=== PATIENT | female | born 1975 | race Caucasian/White ===

== ENCOUNTER → 2020-10-28 14:03 | Outpatient (CLI) | payer OTHER, SELFPAY ==
--- NOTE | ~2020-10-28 | MM_ITS ---
EXAMINATION: MM screening ana BI w elian HISTORY: Screening TECHNIQUE: Craniocaudal and mediolateral oblique 3-D tomosynthesis images were obtained and synthetic 2-D images were generated. CAD analysis was submitted and interpreted. COMPARISON: Comparison to multiple prior studies sequentially, with oldest reviewed study dated 06/06. BREAST PARENCHYMAL COMPOSITION: There are scattered areas of fibroglandular density. FINDINGS: There is no evidence of suspicious mass, calcification, or architectural distortion to sugg est malignancy in either breast. There has been no suspicious interval change. IMPRESSION: 1. No mammographic evidence of malignancy. 2. Recommend routine screening mammography in one year. BI-RADS Category 1: Negative Reviewed, dictated and finalized at location A. UNTING MACHINE OPERATOR
== END ==
PROVIDERS: Visit Provider Nurse Practitioner
DX: Z12.31 Encounter for screening mammogram for malignant neoplasm of breast (principal)
CPT/HCPCS: 77063; 77067

== ENCOUNTER → 2021-10-31 15:55 | Outpatient (CLI) | payer OTHER, SELFPAY ==
--- NOTE | ~2021-10-31 | MM_ITS ---
EXAMINATION: MM screening ana BI w elian HISTORY: Screening mammogram TECHNIQUE: Craniocaudal and mediolateral oblique 3-D tomosynthesis images were obtained and synthetic 2-D images were generated. CAD analysis was submitted and interpreted. COMPARISON: October 28, 2020, August 29, 2019 bilateral screening mammogram examinations BREAST PARENCHYMAL COMPOSITION: There are scattered areas of fibroglandular density. FINDINGS: There is no evidence of suspicious mass, calcification, or architectural distortion to sugg est malignancy in either breast. There has been no suspicious interval change. IMPRESSION: 1. No mammographic evidence of malignancy. 2. Recommend routine screening mammography in one year. BI-RADS Category 1: Negative Reviewed, dictated and finalized at location A. SORTER
== END ==
PROVIDERS: Visit Provider Nurse Practitioner
DX: Z12.31 Encounter for screening mammogram for malignant neoplasm of breast (principal)
CPT/HCPCS: 77063; 77067

== ENCOUNTER → 2022-12-03 11:09 | Outpatient (CLI) | payer OTHER, SELFPAY ==
--- NOTE | ~2022-12-03 | US_ITS ---
EXAMINATION: US thyroid DATE: 12/03/2022 11:25 INDICATION: Post procedural hypothyroidism. TECHNIQUE: Multiple ultrasound images of the thyroid were obtained. COMPARISON: Ultrasound 11/03/2018 FINDINGS: The thyroid is absent. There is no abnormal tissue in the thyroidectomy bed. IMPRESSION: 1. Thyroidectomy. Reviewed, dictated and finalized at location A. IMPRESSION: 1. Thyroidectomy.
== END ==
PROVIDERS: PCP Internal Medicine Endocrinology, Diabetes & Metabolism; Visit Provider Internal Medicine Endocrinology, Diabetes & Metabolism
DX: E89.0 Postprocedural hypothyroidism (principal)
CPT/HCPCS: 76536

== ENCOUNTER 2023-02-01 16:00 | Emergency (ER) | payer OTHER, SELFPAY ==
[2023-02-01 16:03] VITALS: BP 168/125; PULSE 69; RESP 16; TEMP 36.2; O2SAT 100
--- NOTE | 2023-02-01 16:35 | ED.DIZZY ---
HPI - Dizziness General Chief Complaint: Dizziness Stated Complaint: DIZZY/NAUSEA Time Seen by Provider: 02/01/23 16:25 Source: patient Mode of arrival: ambulatory Limitations: no limitations History of Present Illness HPI Narrative: Patient is a 47-year-old female who presents with dizziness and nausea. Patient states she had similar symptoms on Saturday along with diarrhea that resolved in the afternoon. Patient states dizziness feels like she is going to pass out, denies room spinning. States when she has dizziness episodes she is not having any chest pain or feeling like her heart is pounding. Patient denies any ear pain, sore throat, cough. Does report mild congestion that is similar to her seasonal allergies but has not taken any allergy medicine. Also reports headache today that feels as if it is pounding. Patient is currently hypertensive but denies taking her blood pressure at home. Related Data Home Medications Medication Instructions Recorded Confirmed multivitamin 1 tablet PO QAM 04/27/20 02/01/23 hydrocortisone 2.5 % topical cream 1 applic topical DAILY 02/01/23 02/01/23 Allergies Allergy/AdvReac Type Severity Reaction Status Date / Time levofloxacin Allergy Unknown Hives Verified 02/01/23 16:16 Review of Systems Review of Systems: All systems reviewed & are unremarkable except as noted in HPI and below Constitutional: Constitutional: Denies body ache(s), Denies chills, Denies fatigue, Denies fever(s), Reports headache(s), Denies malaise and Denies weakness Eyes: Eyes: Denies blurry vision, Denies irritation and Denies loss of vision ENT: Denies otalgia, Reports headache(s), Denies nasal discharge, Denies sinus pain and Denies sore throat Cardiovascular: Cardiovascular: Denies chest pain, Denies irregular heart rhythm and Denies dyspnea Respiratory: Respiratory: Denies dyspnea Gastrointestinal: Gastrointestinal: Denies abdominal pain, Denies melena, Denies hematochezia, Denies diarrhea, Denies nausea and Denies vomiting Musculoskeletal: Musculoskeletal: Denies back pain, Denies myalgias and Denies arthralgias Integumentary/Breasts: Skin/Breast: Denies pruritus and Denies rash Neurologic: Reports dizziness, Reports headache(s), Denies loss of vision and Denies weakness Psychiatric: Psychiatric: Reports no additional psychiatric complaints Endocrine: Endocrine: Denies fatigue PMFSH Past Medical History Medical History (Updated 02/01/23 @ 18:22 by Freida Emery, SURAJ) Heart palpitations Vitamin D deficiency Surgical History Surgical History H/O thyroidectomy 01/2018 Family History Family History Mother Family history of thyroid disease Family history of pancreatic cancer Family history of coronary artery disease Family history of malignant neoplasm of thyroid Hypertension Father Acute myocardial infarction Hypertension Hyperlipidemia Other Family history of cardiovascular disease Family history of glaucoma Family history of hearing loss Social History Social History Smoking status: Former smoker Smoking end date: 09/09/99 Alcohol intake: current Comments At time of signature, agree with nursing past medical, surgical, social and family history. There is no relevant family history pertinent to the presenting complaint. Exam Const: General: cooperative, healthy appearing, comfortable, no acute distress and well nourished Nutritional Appearance: well nourished Orientation/consciousness: patient oriented x3 Limitations: no limitations HENMT: Head: normal to inspection, normocephalic and atraumatic Ears: hearing grossly normal bilaterally and external ears normal Face/Nose/Sinus: Normal external nose present, normal facial exam and face symmetric Face and sinus: normal facial exam and face symmetric
--- NOTE | 2023-02-01 16:38 | ECG_ITS ---
Measurements Intervals Odin Rate: 54 P: 63 IN: 161 QRS: 69 QRSD: 106 T: 72 QT: 422 QTc: 402 Interpretive Statements SINUS BRADYCARDIA INCOMPLETE RIGHT BUNDLE BRANCH BLOCK BASELINE ARTIFACT- I, AVR, AVL BORDERLINE ECG COMPARED TO ECG 02/01/2023 16:49:22 NO SIGNIFICANT CHANGES Electronically Signed On 02-02-2023 8:12:06 CDT by Cristopher Hutson D.O.
[2023-02-01 17:20] VITALS: BP 155/113; PULSE 66
== END 2023-02-01 17:40 | disposition short-term general hospital (02) ==
PROVIDERS: Emergency Provider Nurse Practitioner Family; PCP Internal Medicine
DX: R42 Dizziness and giddiness (principal); R51.9 Headache, unspecified; I10 Essential (primary) hypertension; Z20.822 Contact with and (suspected) exposure to COVID-19; I45.10 Unspecified right bundle-branch block; Z87.891 Personal history of nicotine dependence; E89.0 Postprocedural hypothyroidism
CPT/HCPCS: 87426; 87804; 93005; 99213; C9803; G0463

== ENCOUNTER 2023-02-01 17:58 | Emergency (ER) | payer OTHER, SELFPAY ==
[2023-02-01] VITALS (18 sets, daily range): BP systolic 132–167; BP diastolic 93–114; PULSE 60–73; RESP 11–22; TEMP 36.6; O2SAT 100
--- NOTE | 2023-02-01 18:16 | ECG_ITS ---
Measurements Intervals Moro Rate: 59 P: 56 MO: 162 QRS: 64 QRSD: 100 T: 61 QT: 415 QTc: 412 Interpretive Statements SINUS BRADYCARDIA WITH SINUS ARRHYTHMIA INCOMPLETE RIGHT BUNDLE BRANCH BLOCK BASELINE WANDER- II, III BORDERLINE ECG NO PREVIOUS ECG AVAILABLE FOR COMPARISON Electronically Signed On 02-02-2023 8:09:20 CDT by Cristopher Hutson D.O.
[2023-02-01 18:33] LABS: Basophils Absolute Auto 0.1 K/mm3 (0.0-0.1); Basophils Percent Auto 0.6 % (0.2-1.2); Eosinophils Absolute Auto 0.1 K/mm3 (0-0.3); Eosinophils Percent Auto 0.8 % (0-4.4); Hematocrit 43.9 % (37.0-47.0); Immature Granulocyte Absolute 0.03 K/mm3 (0.00-0.031); Immature Granulocyte Percent A 0.3 % (0-0.5); Lymphocytes Absolute Auto 2.01 K/mm3 (0.9-3.2); Lymphocytes Percent Auto 22.4 % (18.3-44.2); Mean Corpuscular HGB Conc 34.2 g/dl (32-36); Mean Corpuscular Hemoglobin 32.5 pg (26-34); Mean Platelet Volume 10.3 fl (7.4-10.4); Monocytes Absolute Auto 0.5 K/mm3 (0.1-0.6); Monocytes Percent Auto 5.8 % (2.6-8.5); Neutrophils Absolute Auto 6.3 K/mm3 (1.3-6.7); Neutrophils Percent Auto 70.1 % (45.5-73.1); Platelet Count Result 210 k/mm3 (150-375); Red Blood Count 4.62 M/mm3 (4.2-5.4); Red Cell Distribution Width 12.5 % (11.5-14.5)
[2023-02-01 19:10] LABS: Alanine Aminotransferase 31 U/L (6-35); Albumin Level 4.5 g/dL (3.5-5.1); Alkaline Phosphatase 65 U/L (38-126); Anion Gap 3 mmol/L (8-16); Aspartate Amino Transferase 33 U/L (14-36); Bilirubin,Total 0.7 mg/dL (0.2-1.3); Blood Urea Nitrogen 16 mg/dL (7-17); Calcium 8.7 mg/dL (8.4-10.2); Carbon Dioxide 32 mmol/L (22-30); Chloride 102 mmol/L (98-107); Estimated CRCL calculation 115 ml/min; Estimated Glomerular Filt Rate > 60; Glucose 103 mg/dL (65-110); Potassium 4.3 mmol/L (3.4-5.0); Sodium 137 mmol/L (137-145)
--- NOTE | 2023-02-01 19:47 | ED.DIZZY ---
HPI - Dizziness General Chief Complaint: Dizziness Stated Complaint: dizzy, headache, nausea, high BP Time Seen by Provider: 02/01/23 19:03 History of Present Illness HPI Narrative: This is a 47-year-old female with past history of thyroidectomy for thyroid nodule, who presents to the emergency department from urgent care with complaints of intermittent headaches and lightheadedness. The patient states 5 days ago, she had a throbbing-like headache, associated with loose stools, that improved on its own. Today she had similar symptoms, presented to the urgent care and was told she had high blood pressure was referred here for further evaluation. At present the patient states she feels the best I ever have. She denies recent travel, abnormal rash, known insect bites or exposure to hazardous chemicals. Related Data Home Medications Medication Instructions Recorded Confirmed multivitamin 1 tablet PO QAM 04/27/20 02/01/23 hydrocortisone 2.5 % topical cream 1 applic topical DAILY 02/01/23 02/01/23 Allergies Allergy/AdvReac Type Severity Reaction Status Date / Time levofloxacin Allergy Unknown Hives Verified 02/01/23 16:16 Review of Systems Review of Systems: CONSTITUTIONAL: Denies fever, chills, or sweats. EYES: Denies visual changes, redness, or discharge. CARDIOVASCULAR: Denies chest pain, palpitations, or edema. RESPIRATORY: Denies cough or dyspnea. GASTROINTESTINAL: Denies abdominal pain, nausea, vomiting, or diarrhea. GENITOURINARY: Denies dysuria or hematuria. SKIN: Denies rash or itching. MUSCULOSKELETAL: Denies back pain, joint pain, or myalgia. NEUROLOGIC: Headache and intermittent lightheadedness, both improved denies numbness, dizziness, or weakness. PSYCHIATRIC: Denies anxiety or depression. [facility] Past Medical History Medical History (Updated 02/01/23 @ 21:29 by Thompson Senior MD) Heart palpitations Vitamin D deficiency Surgical History Surgical History H/O thyroidectomy 01/2018 Family History Family History Mother Family history of thyroid disease Family history of pancreatic cancer Family history of coronary artery disease Family history of malignant neoplasm of thyroid Hypertension Father Acute myocardial infarction Hypertension Hyperlipidemia Other Family history of cardiovascular disease Family history of glaucoma Family history of hearing loss Social History Social History Smoking status: Former smoker Smoking end date: 09/09/99 Alcohol intake: current Exam Narrative: GENERAL: Well-developed, well-nourished, and in no acute distress. HEAD: Normocephalic, atraumatic. EYES: PERRLA and EOMI. funduscopic exam unremarkable ENT: Nares clear, no rhinorrhea or epistaxis. Mucous membranes moist. Oropharynx without tonsillar hypertrophy exudate or other lesions. NECK: Supple. No adenopathy or masses. No carotid bruits or JVD CHEST: Clear to auscultation. No respiratory distress. No wheezes rales or rhonchi HEART: Regular rate and rhythm. No murmur heard. Normal peripheral pulses. ABDOMEN: Soft, nontender, nondistended, normal active bowel sounds. EXTREMITIES: Normal range of motion. No edema. SKIN: Warm, dry, no rash. NEURO: No focal deficits. Alert and oriented x3. Cranial nerves II through XII intact, strength 5/5 in all extremities, sensation intact bilaterally, no noted ataxia PSYCH: Normal mood and affect. Course Course Emergency Course: 19:50 - Chemistries unremarkable. CBC unremarkable. Will add TSH. Blood pressure during examination 143/99. 21:27 - Without intervention, the patient's blood pressure remained at 145/95. TSH within normal limits. Troponin negative. Will discharge with recommendation to follow-up with her primary care doctor and discuss antihypertensive medic
[2023-02-01 20:23] LABS: Troponin I < 0.012 ng/mL (0.000-0.034)
[2023-02-01 21:20] LABS: Thyroid Stimulating Hormone Reflex 0.863 uIU/mL (0.465-4.68)
== END 2023-02-01 21:44 | disposition home or self-care (01) ==
PROVIDERS: Emergency Medicine; Emergency Provider Preventive Medicine Aerospace Medicine; PCP Internal Medicine
DX: R51.9 Headache, unspecified (principal); I10 Essential (primary) hypertension; E89.0 Postprocedural hypothyroidism; E55.9 Vitamin D deficiency, unspecified; Z87.891 Personal history of nicotine dependence; R00.1 Bradycardia, unspecified; I45.10 Unspecified right bundle-branch block
CPT/HCPCS: 36415; 80053; 84443; 84484; 85025; 87426; 87804; 93005; 99284; C9803

== ENCOUNTER → 2023-02-26 07:34 | Outpatient (CLI) | payer OTHER, SELFPAY ==
--- NOTE | ~2023-02-26 | MM_ITS ---
EXAMINATION: MM screening ana BI w elian HISTORY: Screening mammogram TECHNIQUE: Craniocaudal and mediolateral oblique 3-D tomosynthesis images were obtained and synthetic 2-D images were generated. CAD analysis was submitted and interpreted. COMPARISON: October 31, 2021, October 28, 2020, August 29, 2019 bilateral screening mammogram exa minations BREAST PARENCHYMAL COMPOSITION: There are scattered areas of fibroglandular density. FINDINGS: There is no evidence of suspicious mass, calcification, or architectural distortion to sugg est malignancy in either breast. There has been no suspicious interval change. IMPRESSION: 1. No mammographic evidence of malignancy. 2. Recommend routine screening mammography in one year. BI-RADS Category 1: Negative Reviewed, dictated and finalized at location A.
== END ==
PROVIDERS: PCP Obstetrics & Gynecology Gynecology; Visit Provider Obstetrics & Gynecology Gynecology
DX: Z12.31 Encounter for screening mammogram for malignant neoplasm of breast (principal)
CPT/HCPCS: 77063; 77067

== ENCOUNTER 2025-01-01 01:59 | Day surgery (SDC) | payer BC, SELFPAY ==
[2024-12-23 10:24] VITALS: BMI 30.9
--- OUTSIDE RECORDS SUMMARY | 2025-01-01 02:03 | XMS_ITS | Clinical Summary ---
Author Organization [facility] Administrative Offices Address [address] [place] [address] Care Team Providers Care Studio Couch Frame Builder Name Role Phone Joselito Michelle DO Primary Care Provider Allergies No known active allergies Medications LEUPROLIDE ACETATE (LUPRON SUBCUT) Inject 0.5 mL by subcutaneous injection daily. Active dexamethasone (DECADRON) 0.75 mg Oral Tab Take 0.75 mg by mouth daily. Active VITS W-CA,FE,FA,<1M G, ( VITAMIN ORAL) Take 1 Tab by mouth daily. Active ergocalciferol (VITAMIN D2) 50,000 unit Oral capsule Take 50,000 Units by mouth twice weekly. Mondays & Fridays Active ESTRADIOL VALERATE (DELESTROGEN IM) Inject 0.2 mL by intramuscular injection twice weekly. Saturday = 0.2cc & = 0.3cc Active Social History Tobacco Use Types Packs/Day Years Used Date Smoking Tobacco: Never Assessed Comments Unknown Sex and Gender Information Value Date Recorded Sex Assigned at Not on file Legal Sex Female 1:41 PM CDT Gender Identity Not on file Sexual Orientation Not on file Last Filed Vital Signs Vital Sign Reading Time Taken Comments Blood Pressure 141/94 01/26/2013 1:50 PM CDT Pulse 80 01/26/2013 1:50 PM CDT Temperature 36.8 C (98.2 F) 01/26/2013 1:50 PM CDT Respiratory Rate 20 01/26/2013 1:50 PM CDT Oxygen Saturation - - Inhaled Oxygen Concentration - - Weight 79.8 kg (176 lb) 01/26/2013 1:50 PM CDT Height 170.2 cm (5' 7 ) 01/26/2013 1:50 PM CDT Body Mass Index 27.57 01/26/2013 1:50 PM CDT Plan of Treatment Health Maintenance Due Date Last Done Comments DTAP/TDAP/TD VACCINES (1 - Tdap) 1996 HEPATITIS B VACCINES (1 of 3 - 19+ 3-dose series) 02/08 HPV/Cotest (21-29) 1998 CERVICAL CANCER SCREENING 2007 HPV/Cotest (30-65) 2007 PAP SMEAR 2007 BREAST CANCER SCREENING 2017 COLORECTAL SCREENING 2022 Colorectal Cancer Screening 2022 FIT-DNA Q 3 years 2022 FIT/FOBT Q 1 year 2022 Flex Sig/CT Colonography Q 5 years 2022 INFLUENZA VACCINE (#1) 2024 Insurance Care Teams Studio Couch Frame Builder Relationship Specialty Start Date End Date Joselito Michelle DO PCP - General Internal Medicine 12/16/15
--- OUTSIDE RECORDS SUMMARY | 2025-01-01 02:03 | XMS_ITS | Clinical Summary ---
Author Organization [facility] [address] [facility] [place] Address [address] [place] [address] Care Team Providers Care Basting Cleaner Name Role Phone Joselito Michelle DO Primary Care Provider [phone] Mely Hackett Unavailable [phone] Alexandra Merchant MD Unavailable [phone] Allergies Active Allergy Reactions Criticality Noted Date Comments Levofloxacin Urticaria,Hives Medium 08/10/2013 Medications ergocalciferol (VITAMIN D) 50,000 unit capsule Take 1 capsule (50,000 Units total) by mouth 2 (two) times a week 7 Active loratadine (CLARITIN) 10 mg tablet Take 1 tablet (10 mg total) by mouth nightly Active ascorbic acid (vitamin C) 1,000 mg tablet Take 1 tablet (1,000 mg total) by mouth every morning Active multivitamin tabletIndicatio ns:Vitamin Deficiency Prevention Take 1 tablet by mouth every morning Active levothyroxine (SYNTHROID, LEVOTHROID) 125 mcg tablet Take 1 tablet (125 mcg total) by mouth cyber security administrator before breakfast 30 tablet 2 9 Active lisinopril (PRINIVIL,ZESTR IL) 10 mg tablet TK 1 T PO QD 3 9 Active Soolantra 1 % cream daily Active benzoyl peroxide (Epsolay) 5 % cream Apply topically Active Active Problems Problem Noted Date Diagnosed Date Multiple thyroid nodules 12/22/2018 Overview (12/22/2018): Added automatically from request for surgery [id number] Preeclampsia 08/10/2013 Overview (07/12/2024): Overview: 24 hour urine 512mg 24 hour urine 512mg 24 hour urine 512mg Rh negative status during 08/10/2013 Overview (09/16/2017): Overview: Rhogam 05/28 Supervision of high-risk 08/10/2013 Overview (09/16/2017): Overview: O-/I/-/-, HIV NR Dating by week US and IVF GCT normal per patient GBS negative Immunizations Immunization Administration Dates Next Due Influenza, Quadrivalent, Spl it, Intramuscular 07/15/2020 Influenza, Quadrivalent, Spl it, Preservative Free, Intramuscular 06/13/2021 Influenza, Trivalent, IM (MDV) 07/04/2015,2013 Influenza, Unspecified 06/09/2021,06/09/2020,04/2013 Rho (D) Immune Globulin 08/16/2013,08/10/2013 Rho (D) Immune Globulin, IV or IM 03/23/2016, Surgical History Surgery Date Site/Laterality Comments LAPAROSCOPY Nodule removed LAPAROSCOPY IVF x2 THYROID SURGERY Medical History Medical History Date Comments Thyroid disease Hypertension affecting Family History Medical History Relation Name Comments Heart attack Father with stent plac ement Heart disease Mother Thyroid cancer, pancreatic cancer Mother Skin cancer Paternal Grandmother Cancer Neg Hx Hypertension Neg Hx Relation Name Status Comments Father Mother Paternal Grandmother Social History Tobacco Use Types Packs/Day Years Used Date Smoking Tobacco: Never Smokeless Tobacco: Never Alcohol Use Standard Drinks/Week Comments Yes 0 (1 standard drink = 0.6 oz pur e alcohol) AUDIT-C Answer Date Recorded Q1: How often do you have a drink containing alc ohol? 2-4 times a month 07/08/2021 Q2: How many drinks containi ng alcohol do you have on a typical day when you are drinking? 1 or 2 07/08/2021 Q3: How often do you have si x or more drinks on one occasion? Never 07/08/2021 Comments No Sex and Gender Information Value Date Recorded Sex Assigned at Not on file Legal Sex Female 12:46 AM CAD INTERN Gender Identity Female 07/12/2024 6:21 AM CAD INTERN Sexual Orientation Not on file Obstetrics History Last Filed Vital Signs Vital Sign Reading Time Taken Comments Blood Pressure 160/89 07/12/2024 6:47 PM CAD INTERN Pulse 61 07/12/2024 6:47 PM CAD INTERN Temperature 36.4 C (97.5 F) 07/12/2024 6:47 PM CAD INTERN Respiratory Rate 16 07/12/2024 6:47 PM CAD INTERN Oxygen Saturation 93% 07/12/2024 6:47 PM CAD INTERN Inhaled Oxygen Concentration - - Weight 86.2 kg (190 lb) 07/12/2024 6:47 PM CAD INTERN Height 170.2 cm (5' 7 ) 07/12/2024 6:47 PM CAD INTERN Body Mass Index 29.76 07/12/2024 6:47 PM CAD INTERN Plan of Treatment Health Maintenance Due Date Last Done Comments Breast Cancer Screening-Mammogram 1977 Cervical Cancer Screening 1977 Colon Cancer Screening-Colonoscopy 1977 Depression Screening 1977 Hepatitis C Screening 1977 Hepatitis B Screening 1995 Regular Well Visit/Exam 18-64 1995 DTaP/Tdap/Td Vaccine (2 - Td or Tdap) 08/16/2023 08/16/2013 Covid-19 Vaccine ( season) 2024 11/22/2020, 10/22/2020 Influenza Vaccine (#1) 2024 , 06/09/2021, 07/15/2020, Additional history exists Pneumococcal vaccine <65 Aged Out No longer eligible based on patient's age to complete this topic Insurance [facility] CHOICE PL[facility] HMO/PPO Address: [address] [address] [place] [address] CHOICE [place]F P[place] Advance Directives For more information, please contact: [phone] * Full Code (Latest Code Status on File) Date Activated Date Inactivated Comments 01/09/2019 3:27 PM 01/10/2019 2:31 PM Care Teams Basting Cleaner Relationship Specialty Start Date End Date Joselito Michelle DO PCP - General Internal Medicine 04/18/18 Mely Hackett PA 12/08/18 Alexandra Merchant MD Referring Physician Internal Medicine 03/05/19
--- OUTSIDE RECORDS SUMMARY | 2025-01-01 02:03 | XMS_ITS | Patient Health Record ---
Author Organization [facility] [employer] [place] ([address]) Address [address] [place] [address] Care Team Providers Care Time Lock Expert Name Role Phone Joselito Michelle Primary Care Provider Unavailab Parul Adrian Unavailable [phone] Rick Paz MD Unavailable Unavailable [employer], Provider Unavailable Unavailab le Allergies Allergen (clinical drug ingredient) Drug/Non Drug Allergy documented on EMR Reaction Allergy Type Onset Date Status Levaqgibran hives Drug Allergy Active Reason For Referral No Information Medications Medication SIG (Take, Route, Frequency, Duration) Notes Start Date End Date Status Fluticasone Propionate 50 MCG/ACT 2 spray(s) in each nostril BID for 30 day(s) 04/02/2023 Active LEVOCETIRIZINE 5 mg 1 tab(s) orally once a day (in the evening) for 30 day(s) 04/02/2023 Active Levocetirizine Dihydrochloride 5 MG 1 tab(s) orally once a day (in the evening) for 30 day(s) 04/02/2023 Active SOOLANTRA 1% 1 duane applied topica lly once a day Active Soolantra 1 % 1 duane applied topica lly once a day Active DOXYCYCLINE hyclate 100 mg 1 cap(s) oral ly 2 times a day for 10 day(s) Active Doxycycline Hyclate 100 MG 1 cap(s) oral ly 2 times a day for 10 day(s) Active SYNTHROID 112 mcg (0.112 mg) 1 tab(s) or ally once a day for 30 day(s) Active Synthroid 112 MCG 1 tab(s) orally once a day for 30 day(s) Active FLUTICASONE NASAL 50 mcg/inh 2 spray(s) in each nostril BID for 30 day(s) 04/02/2023 Active Social History Tobacco Use: Social History Observation Description Date Details (start date - stop date) Never Smoker NA - NA Smoking Smart Form: Question Answer Notes Are you a: never smoker Problems Problem Type SNOMED Code ICD Code Onset Dates Problem Status W/U Status Risk Notes Problem Chronic allergic conjunctivitis (25151141) Other chronic allergic conjunctivitis (H10.45) Active confirmed Problem Allergic rhinitis (81693584) Other allergic rhinitis (J30.89) Active confirmed Problem Dermatitis (874612250) Dermatitis, unspecified (L30.9) Active confirmed Problem Allergic rhinitis caused by animal hair and dander (372178891800419) Allergic rhinitis due to animal (cat) (dog) hair and dander (J30.81) Active confirmed Encounters Encounter Location Date Provider Diagnosis [address] [address] 02/22/2024 Provider [facility] Allergic rhinitis due to animal (cat) (dog) hair and dander J30.81 Assessments Encounter Date Diagnosis (ICD Code) Assessment Notes Treatment Notes Treatment Clinical Notes Section Notes 02/22/2024 Allergic rhinitis due to animal (cat) (dog) hair and dander (ICD-10 - J30.81) Plan Of Treatment No Information Insurance Providers Payer Name Payer Address Payer Phone Subscriber Number Group Number Insured Name Patient Relationship to Insured Coverage Start Date Coverage End Date [facility] [address] [address] [place] [address] [id number] Briseyda Jackson Self - patient is the insured Medical (General) History Medical History History ICD Code hypothyroidism Dermatitis, unspecified L30.9 Surgical History Surgery Date(Month/Year) Thyroid removal 01/07/2019
--- OUTSIDE RECORDS SUMMARY | 2025-01-01 02:03 | XMS_ITS | Clinical Summary ---
Author Organization [facility] [employer] Address [address] [place] [address] Care Team Providers Care Yard Crane Operator Name Role Phone Dennys Cordova MD Primary Care Provider [phone] Source Comments [facility],non-owned Affiliates and Associated Physician Practices is amultiple site organization consisting of ambulatory clinics and hospital sitesin [place], [place], [place] and [place]. This disclosure is being madepursuant to the Care Everywhere program and may not contain all information available regarding this patient. Last updated 18.[facility] [employer] Allergies Active Allergy Reactions Criticality Noted Date Comments Levofloxacin Urticaria Medium 08/10/2013 Medications * Be aware that medications may not be up to date on this document. Alwaysverify current medications with the patient. methIMAzole (TAPAZOLE) 5 MG tablet 07/09/2017 Active Active Problems Problem Noted Date Diagnosed Date Supervision of high-risk 08/10/2013 Overview (08/13/2013): O-/I/-/-, HIV NR Dating by L/12 week US and IVF GCT normal per patient GBS negative Preeclampsia 08/10/2013 Overview (08/10/2013): 24 hour urine 512mg Rh negative status during 08/10/2013 Overview (08/10/2013): Rhogam 05/28 Immunizations Immunization Administration Dates Next Due INFLUENZA VACCINE 08/16/2013 Rho D Immune Globulin 08/16/2013,08/10/2013 TDAP (7yrs+) 08/16/2013 Family History Medical History Relation Name Comments Heart Disease Father Hypertension Father Cancer Mother Hypertension Mother Labor Mother Relation Name Status Comments Father Mother Social History Tobacco Use Types Packs/Day Years Used Date Smoking Tobacco: Former Cigarettes Q uit: 08/10/2000 Smokeless Tobacco: Never Alcohol Use Standard Drinks/Week Comments Yes 0 (1 standard drink = 0.6 oz pur e alcohol) occasional before Comments Unknown Sex and Gender Information Value Date Recorded Sex Assigned at Not on file Legal Sex Female 12:37 PM HONING MACHINE SET UP OPERATOR Gender Identity Not on file Sexual Orientation Not on file Last Filed Vital Signs Vital Sign Reading Time Taken Comments Blood Pressure 120/82 03/29/2018 12:22 PM CDT Pulse 101 03/29/2018 12:22 PM CDT Temperature 37.6 C (99.7 F) 03/29/2018 12:22 PM CDT Respiratory Rate 16 03/29/2018 12:22 PM CDT Oxygen Saturation 98% 03/29/2018 12:22 PM CDT Inhaled Oxygen Concentration - - Weight 85.7 kg (189 lb) 03/29/2018 12:22 PM CDT Height 170.2 cm (5' 7 ) 03/29/2018 12:22 PM CDT Body Mass Index 29.6 03/29/2018 12:22 PM CDT Plan of Treatment Health Maintenance Due Date Last Done Comments COLOGUARD (AGES 45-75) - COL ON CA SCREENING 1977 COLON MONITORING 1977 COLONOSCOPY - COLON CA SCREENING 1977 CT COLONOGRAPHY - COLON CA SCREENING 1977 Colorectal Cancer Screening 1977 FIT - COLON CA SCREENING 1977 FLEX SIG - COLON CA SCREENING 1977 LIPID TESTING 1977 MAMMOGRAM 1977 PAP SMEAR 1977 HIV SCREENING 1992 HEPATITIS C SCREENING 02/25/1995 HEPATITIS B VACCINE (1 of 3 - 19+ 3-dose series) 1996 SCREENING FOR DIABETES 12/16/2017 3, 08/10/2013 DTAP/TDAP/TD VACCINES (2 - T d or Tdap) 08/16/2023 08/16/2013 COVID-19 VACCINE (2023-2 5 season) 2024 DEPRESSION SCREENING 09/09/2024 INFLUENZA VACCINE (Season Ended) 2025 08/16/2013 ZOSTER VACCINE (1 of 2) 2027 HIB VACCINE Aged Out No longer eligi ble based on patient's age to complete this topic HPV VACCINE Aged Out No longer eligi ble based on patient's age to complete this topic MENINGOCOCCAL (Group B) VACCINE SHARED DECISION-MAKING Aged Out No longer eligible based on patient's age to complete this topic MENINGOCOCCAL GROUPS A/C/Y/W VACCINE Aged Out No longer eligible b ased on patient's age to complete this topic PNEUMOCOCCAL VACCINE Aged Out No long er eligible based on patient's age to complete this topic Procedures Procedure Name Priority Date/Time Associated Diagnosis Comments COMPREHENSIVE METABOLIC PANEL Routine 08/14/2013 6:33 AM HONING MACHINE SET UP OPERATOR from Last 3 Months or Most Recently Relevant to Health Maintenance Results * (ABNORMAL) COMPREHENSIVE METABOLIC PANEL (08/14/2013 6:33 AM HONING MACHINE SET UP OPERATOR) Glucose 74 74 - 106 mg/dL 08/14/2013 7:38 AM [facility] Sodium 141 136 - 145 mmol/L 08/14/2013 7:38 AM [facility] Potassium 3.7 3.5 - 5.1 mmol/L 08/14/2013 7:38 AM [facility] Chloride 106 98 - 107 mmol/L 08/14/2013 7:38 AM [facility] CO2 23 22 - 31 mmol/L 08/14/2013 7:38 AM [facility] Calcium 8.2(L) 8.5 - 10.1 mg/dL 08/14/2013 7:38 AM [facility] Anion Gap 12 5 - 15 mmol/L 08/14/2013 7:38 AM [facility] BUN 8 7 - 21 mg/dL 08/14/2013 7:38 AM [facility] Creatinine 0.50 0.50 - 1.30 mg/dL 08/14/2013 7:38 AM [facility] eGFR by MDRD >60 >60 mL/min/1.7 3m2 08/14/2013 7:38 AM [facility] eGFR by MDRD >60 >60 mL/min/1.7 3m2 08/14/2013 7:38 AM HONING MACHINE SET UP OPERATOR [facility] Alkaline Phosphatase 128(H) 38 - 126 U/L 08/14/2013 7:38 AM HONING MACHINE SET UP OPERATOR [facility] ALT 41 12 - 78 U/L 08/14/2013 7:38 AM HONING MACHINE SET UP OPERATOR [facility] AST 27 5 - 40 U/L 08/14/2013 7:38 AM HONING MACHINE SET UP OPERATOR [facility] Protein Total 5.5(L) 6.4 - 8.2 gm/dL 08/14/2013 7:38 AM HONING MACHINE SET UP OPERATOR [facility] Albumin 2.0(L) 3.4 - 5.0 gm/dL 08/14/2013 7:38 AM HONING MACHINE SET UP OPERATOR [facility] Bilirubin Total 0.4 0.2 - 1.0 mg/dL 08/14/2013 7:38 AM HONING MACHINE SET UP OPERATOR [facility] Blood BLOOD SPECIMEN / Unknown Venipuncture / Unknown 08/14/2013 6:33 AM HONING MACHINE SET UP OPERATOR 08/14/2013 6:52 AM HONING MACHINE SET UP OPERATOR Eloina Mccray MD LAB - CHEMISTRY ORDERA BLES Final Result Performing Organization Address City/State/[facility] Co de Phone Number [facility] [address] [place] [address] from Last 3 Months or Most Recently Relevant to Health Maintenance Insurance [facility] [employer] Advance Directives * FULL RESUSCITATION (Latest Code Status on File) Date Activated Date Inactivated Comments 08/10/2013 1:58 PM 08/17/2013 1:39 PM Care Teams Yard Crane Operator Relationship Specialty Start Date End Date Dennys Cordova MD [address] [place] [address] PCP - General 01/15/23
--- OUTSIDE RECORDS SUMMARY | 2025-01-01 02:03 | XMS_ITS ---
Author Organization [facility] ([address]) Address [address] [address] Care Team Providers Care Cook Restaurant Name Role Phone Joselito Michelle Primary Care Provider Unavailab Parul Adrian Unavailable [phone] Rick Paz MD Unavailable Unavailable [facility], Provider Unavailable Unavailab guerrero Allergies Allergen (clinical drug ingredient) Drug/Non Drug Allergy documented on EMR Reaction Allergy Type Onset Date Status Levaquin hives Drug Allergy Active REASON FOR VISIT [facility] To [facility] Conversion Encounter Medications Medication SIG (Take, Route, Frequency, Duration) Notes Start Date End Date Status Fluticasone Propionate 50 MCG/ACT 2 spray(s) in each nostril BID for 30 day(s) 04/02/2023 Active Levocetirizine Dihydrochloride 5 MG 1 tab(s) orally once a day (in the evening) for 30 day(s) 04/02/2023 Active Soolantra 1 % 1 duane applied topica lly once a day Active Doxycycline Hyclate 100 MG 1 cap(s) oral ly 2 times a day for 10 day(s) Active Synthroid 112 MCG 1 tab(s) orally once a day for 30 day(s) Active Encounters Encounter Location Date Provider Diagnosis [facility] - [address] [address] 02/22/2024 Provider [facility] Allergic rhinitis due to animal (cat) (dog) hair and dander J30.81 Assessments Encounter Date Diagnosis (ICD Code) Assessment Notes Treatment Notes Treatment Clinical Notes Section Notes 02/22/2024 Allergic rhinitis due to animal (cat) (dog) hair and dander (ICD-10 - J30.81) Plan Of Treatment Medication Medication Name Sig Start Date Stop Date Notes Fluticasone Propionate 50 MCG/ACT 2 spra y(s) in each nostril BID for 30 day(s) 04/02/2023 Levocetirizine Dihydrochlori de 5 MG 1 tab(s) orally once a day (in the evening) for 30 day(s) 04/02/2023 Progress Notes * Briseyda ROBLES RDOB: 7 (49 yo F)Acc No.[id number]:02/22/2024 Patient: Briseyda FUNK Provider: Federico Baron :1975 A ge:48 Y S ex:Female Date:02/22/2024 Address:[facility] [address] [facility] Pcp:Joselito Michelle Subjective: * Chief Complaints: [facility] [address] [facility] Conversion Encounter. * Medical History: * Medications: T aking Soolantra 1 % Cream 1 duane applied topically once a day , Taking Doxycycline Hyclate 100 MG Capsule 1 cap(s) orally 2 times a day , Taking Synthroid 112 MCG Tablet 1 tab(s) orally once a day * Allergies: L evaquin: hives. Objective: * Vitals: Assessment: * Assessment: 1. A llergic rhinitis due to animal (cat) (dog) hair and dander - J30.81 Plan: * Treatment: * Billing Information: * Visit Code: * Procedure Codes: * Electronic signature of Prov jay PriestZ-Migration on 01/01/2025 at 02:03 AM CDT Sign off status: Pending * Provider: Federico Baron Date: 02/22/2024 Generated for Christian alan/Faneymarg/eTransmitting on: 0 01/01/2025 02:03 AM CDT
--- OUTSIDE RECORDS SUMMARY | 2025-01-01 02:03 | XMS_ITS | Clinical Summary ---
Author Organization [facility] Address [address] [place] [address] Care Team Providers Care Hand Iii Cutter Name Role Phone Saranya Valdez FARM LABOR CONTRACTOR Primary Care Provider Encounters Date Type Department Care Team Description 12/14/2024 3:10 PM CDT - 12/14/2024 11:59 PM CDT Hospital Encounter [facility] [address] [place] [address] Saranya Valdez FNP Discharge Disposition: Home or Self Care (Routine Discharge) 12/14/2024 Travel from Last 3 Months Social History Tobacco Use Types Packs/Day Years Used Date Smoking Tobacco: Never Assessed Comments Unknown Sex and Gender Information Value Date Recorded Sex Assigned at Female 12/14/2024 3:11 PM CDT Legal Sex Female 6:37 AM VIDEO POKER FLOORMAN Gender Identity Not on file Sexual Orientation Not on file Plan of Treatment Upcoming Encounters Date Type Department Care Team (Late st Contact Info) Description 03/08/2025 2:30 PM CDT [facility] [address] [place] [id number] Abdiel Son MD [facility]. [address] [address] Health Maintenance Due Date Last Done Comments Cervical Cancer Screening Pa p Smear (Age 30 to 64) Every 3 Years 1977 Colorectal Cancer Screening Colonoscopy (10 Years) 1977 Annual Physical 1980 Hepatitis C 1995 Hepatitis B Vaccines (1 of 3 - 19+ 3-dose series) 1996 Cervical Cancer Screening Pa p with HPV Testing (Age 30 to 64) Every 5 Years 2007 Cervical Cancer Screening wi th HPV 2007 Mammogram Screening 2017 DTaP, Tdap and Td Vaccines ( 2 - Td or Tdap) 08/16/2023 08/16/2013 COVID-19 Vaccine (2023-2 5 season) 2024 08/14/2021, 11/22/2020, 10/22/2020 Meningococcal B Vaccine Aged Out No l onger eligible based on patient's age to complete this topic Meningococcal Vaccine Aged Out No cedrick pritesh eligible based on patient's age to complete this topic Pneumococcal Vaccine: Pediatrics (0 to 5 Years) and At-Risk Patients (6 to 49 Years) Aged Out No longer eligible b ased on patient's age to complete this topic RSV Immunizations Under 20 Months Aged Out No longer eligible b ased on patient's age to complete this topic Procedures Procedure Name Priority Date/Time Associated Diagnosis Comments CT HEART SCREEN CALCIUM SCORE PROMO Routine 12/14/2024 3:41 PM CDT Essential (primary) hypertension Family history of ischemic heart disease and other diseases of the circulatory system from Last 3 Months Results * CT HEART SCREEN CALCIUM SCORE PROMO (12/14/2024 3:41 PM CDT) Anatomical Region Laterality Modality Chest Computed Tomogra phy 12/14/2024 3:41 PM CDT Impressions 12/14/2024 3:41 PM CDT =====IMPRESSION:===== Total Score: 0 No plaque, very low risk, very unlikely for probability of significant CAD Ordered By: SARANYA VALDEZ Interpreted By: Jonas Grullon MD, 12/14/2024 3:41 PM Narrative 12/14/2024 3:[address] PM CDT [address] [address] EXAMINATION: Multislice Helical CT Coronary Calcium Scoring REASON FOR EXAM: Screening for heart disease COMPARISON: None TECHNIQUE: Multislice helical CT images of the proximal coronary arteries with a computer generated calcification score. A dose lowering technique was used for this procedure, which may include, but is not limited to, dose reduction technique, automated exposure control, iterative reconstruction, ALARA (As Low As Reasonably Achievable), or Image Gently techniques. Results: Left main: 0 LAD: 0 Circumflex: 0 Right coronary: 0 Total Score: 0 Comments: There is no mediastinal adenopathy, and there are no pulmonary nodules in the visualized portions of the chest. Calcium score guidelines: Total Score* Calcium Plaque Royal *Risk *Probability of significant CAD 0 No Plaque Very Low Very unlikely 1-10 Minimal Plaque Low Unlikely 11-100 Mild Plaque Moderate Low likelihood of significant stenosis <50% 101-400 Moderate Plaque Moderately High Moderate likelihood of significant stenosis (>50%) Over 400 Extensive Plaque High High likelihood of significant stenosis (>50%) The amount of coronary artery calcification correlates with the severity of coronary atherosclerosis and the probability of future significant event. Calcification is not site specific for stenosis and does not identify non-calcified atherosclerotic plaque, but rather indicates the extent of atherosclerosis in the coronary arteries overall. The score may be used as an indicator for risk factor modification or additional cardiac testing. Significant change in calcium score over time may be indicative of subsequent disease development or useful as a benchmark to assess preventative programs. Procedure Note Jonas Grullon MD - 12/14/[address] [address] EXAMINATION: Multislice Helical CT Coronary Calcium Scoring REASON FOR EXAM: Screening for heart disease COMPARISON: None TECHNIQUE: Multislice helical CT images of the proximal coronary arterieswith a computer generated calcification score. A dose lowering techniquewas used for this procedure, which may include, but is not limited to,dose reduction technique, automated exposure control, iterativereconstruction, ALARA (As Low As Reasonably Achievable), or Image Gentlytechniques. Results: Left main: 0 LAD: 0 Circumflex: 0 Right coronary: 0 Total Score: 0 Comments: There is no mediastinal adenopathy, and there are no pulmonarynodules in the visualized portions of the chest. Calcium score guidelines: Total Score* Calcium Plaque Royal *Risk *Probability ofsignificant CAD 0 No Plaque Very LowVery unlikely 1-10 Minimal Plaque LowUnlikely 11-100 Mild Plaque ModerateLow likelihood of significant stenosis <50% 101-400 Moderate Plaque Moderately HighModerate likelihood of significant stenosis (>50%) Over 400 Extensive Plaque HighHigh likelihood of significant stenosis (>50%) The amount of coronary artery calcification correlates with the severityof coronary atherosclerosis and the probability of future significantevent. Calcification is not site specific for stenosis and does notidentify non-calcified atherosclerotic plaque, but rather indicates theextent of atherosclerosis in the coronary arteries overall. The score may be used as an indicator for risk factor modification oradditional cardiac testing. Significant change in calcium score over timemay be indicative of subsequent disease development or useful as abenchmark to assess preventative programs. =====IMPRESSION:===== Total Score: 0 No plaque, very low risk, very unlikely for probability ofsignificant CAD Ordered By: SARANYA VALDEZ Interpreted By: Jonas Grullon MD, 12/14/2024 3:41 PM Saranya Valdez FARM LABOR CONTRACTOR CT Final Result from Last 3 Months Insurance [facility] Care Teams Hand Iii Cutter Relationship Specialty Start Date End Date Saranya Valdez, SPENCER [address] [facility] [address] [place] [address] PCP - General CLINICAL NURSE SPECIALIST 12/04/24
--- OUTSIDE RECORDS SUMMARY | 2025-01-01 02:04 | XMS_ITS | Referral Summary ---
Author Organization [facility] [address] [employer] [place] Address [address] [place] [address] Care Team Providers Care Security Sales Manager Name Role Phone Joselito Michelle DO Primary Care Provider [phone] Mely Hackett Unavailable [phone] Alexandra Merchant MD Unavailable [phone] Allergies Active Allergy Reactions Criticality Noted Date [...] 1 tablet (125 mcg total) by mouth early childhood education worker before breakfast 30 tablet 2 9 Active lisinopril (PRINIVIL,ZESTR IL) 10 mg tablet TK 1 T PO QD 3 9 Active Soolantra 1 % cream daily Active benzoyl peroxide (Epsolay) 5 % cream Apply topically Active Active Problems Problem Noted Date Diagnosed Date Multiple thyroid nodules 12/22/2018 Overview (12/22/2018): Added automatically from request for surgery [id number] Preeclampsia 08/10/2013 Overview (07/12/2024): Overview: 24 hour [...] (D) Immune Globulin, IV or IM 03/23/2016, Social History Tobacco Use Types Packs/Day Years [...] on file Legal Sex Female 12:46 AM COSTUME SPECIALIST Gender Identity Female 07/12/2024 6:21 AM COSTUME SPECIALIST Sexual Orientation Not on file Last Filed Vital Signs Vital Sign Reading Time Taken Comments Blood Pressure 160/89 07/12/2024 6:47 PM COSTUME SPECIALIST Pulse 61 07/12/2024 6:47 PM COSTUME SPECIALIST Temperature 36.4 C (97.5 F) 07/12/2024 6:47 PM COSTUME SPECIALIST Respiratory Rate 16 07/12/2024 6:47 PM COSTUME SPECIALIST Oxygen Saturation 93% 07/12/2024 6:47 PM COSTUME SPECIALIST Inhaled Oxygen Concentration - - Weight 86.2 kg (190 lb) 07/12/2024 6:47 PM COSTUME SPECIALIST Height 170.2 cm (5' 7 ) 07/12/2024 6:47 PM COSTUME SPECIALIST Body Mass Index 29.76 07/12/2024 6:47 PM COSTUME SPECIALIST Plan of Treatment Not on file Insurance [facility]ICE [facility] HMO/PPO Address: [address] [address] [place] [address] CHOICE PRF PPO [place] Advance Directives For more information, please contact: [phone] * Full Code (Latest Code Status on File) Date Activated Date Inactivated Comments 01/09/2019 3:27 PM 01/10/2019 2:31 PM Care Teams Security Sales Manager Relationship Specialty Start Date End Date Joselito Michelle DO PCP - General Internal Medicine 04/18/18 eMly Hackett PA 12/08/18 Alexandra Merchant MD Referring Physician Internal Medicine 03/05/19
--- OUTSIDE RECORDS SUMMARY | 2025-01-01 02:04 | XMS_ITS | Encounter Summary ---
Author Organization [facility] Address [address] [facility] [place] [address] Care Team Providers Care Tools Programmer Name Role Phone Dennys Cordova MD Primary Care Provider [phone] Joselito Michelle DO Primary Care Provider [phone] Dennys Cordova MD Primary Care Provider [phone] Encounter Details Date Type Department Care Team (Late st Contact Info) Description 04/04/2015 Lab Requisition [facility] [address] [place] [address] Antony Rodriguez MD [address] [facility] [address] [place] [address] Social History Tobacco Use Types Packs/Day Years Used Date Smoking Tobacco: Former Cigarettes Q uit: 08/10/2000 Alcohol Use Standard Drinks/Week Comments Yes 0 (1 standard drink = 0.6 oz pur e alcohol) occasional before Comments Unknown Sex and Gender Information Value Date Recorded Sex Assigned at Not on file Legal Sex Female 12:37 PM SENIOR FINANCIAL ACCOUNTANT Gender Identity Not on file Sexual Orientation Not on file documented as of this encounter Plan of Treatment Not on file documented as of this encounter Procedures Procedure Name Priority Date/Time Associated Diagnosis Comments HCG BETA BLOOD QUANTITATIVE STAT 04/04/2015 7:51 AM CDT documented in this encounter Results * HCG BETA BLOOD QUANTITATIVE (04/04/2015 7:51 AM CDT) hCG Quantitative 2 mIU/mL 04/04/2015 2:47 PM CDT [facility] Blood BLOOD SPECIMEN / Unknown Venipuncture / Unknown 04/04/2015 7:51 AM CDT 04/04/2015 2:25 PM CDT Narrative [facility] - 04/04/2015 2:47 PM CDT HCG Reference Range, mIU/ml: Males 0-2.0 Non Females 0-6.0 Perimenopausal Females ages 41-55* 0-7.7 Postmenopausal Females age >55* 0-14 Females, Weeks after LMP 0.2-1 week 5-50 1 - 2 weeks 50-500 2 - 3 weeks 100-5000 3 - 4 weeks 500-10,000 4 - 5 weeks 1000-50,000 5 - 6 weeks 10,000-100,000 6 - 8 weeks 15,000-200,000 2 - 3 months 10,000-100,000 Trophoblastic Disease >100,000 *In higher than expected HCG in females > age 40, a serum FSH >20 IU/L makes unlikely. us Antony Rodriguez MD LAB - CHEMISTRY ORDERABLES Fin al Result [facility] [address] [place] [address] documented in this encounter Visit Diagnoses Not on filedocumented in this encounter Care Teams Tools Programmer Relationship Specialty Start Date End Date Dennys Cordova MD [address] [place] [id number] PCP - General Internal Medicine 08/10/13 03/28/18 Joselito Michelle DO [address] [place] [address] PCP - General Internal Medicine 03/29/18 01/14/23 Dennys Cordova MD [address] [place] [address] PCP - General 01/15/23 documented as of this encounter
--- OUTSIDE RECORDS SUMMARY | 2025-01-01 02:04 | XMS_ITS | Encounter Summary ---
Author Organization [facility] Address [address] [place] [address] Care Team Providers Care Project Development Engineer Name Role Phone Dennys Cordova MD Primary Care Provider [phone] Encounter Details Date Type Department Care Team (Late st Contact Info) Description 01/15/2023 Lab Requisition [facility] [address] [place] [id number] Colin Paz MD [address] [place] [address] Social History Tobacco Use Types Packs/Day Years Used Date Smoking Tobacco: Former Cigarettes Q uit: 08/10/2000 Smokeless Tobacco: Never Alcohol Use Standard Drinks/Week Comments Yes 0 (1 standard drink = 0.6 oz pur e alcohol) occasional before Comments Unknown Sex and Gender Information Value Date Recorded Sex Assigned at Not on file Legal Sex Female 12:37 PM [employer]PER[employer] Gender Identity Not on file Sexual Orientation Not on file documented as of this encounter Plan of Treatment Not on file documented as of this encounter Procedures Procedure Name Priority Date/Time Associated Diagnosis Comments DERMATOPATHOLOGY Routine 01/14/2023 12:0 0 AM CDT documented in this encounter Results * DERMATOPATHOLOGY (01/14/2023 12:00 AM CDT) Case Report Dermatopathology Report Case: [id number] Authorizing Provider: oClin Paz MD Collected: 01/14/2023 12:00 AM Ordering Location: [facility] Received: 01/15/2023 02:57 PM Pathologist: Elva Berger MD Specimens: A) - Skin, left chest B) - Skin, right shoulder 2:58 PM CDT DERMATOPATHOLOGY LABORATORY Final Diagnosis Specimen A. SKIN, left chest: BASAL CELL CARCINOMA, SUPERFICIAL MULTIFOCAL (C44.519) Specimen B. SKIN, right shoulder: BASAL CELL CARCINOMA, SUPERFICIAL MULTIFOCAL (C44.612) 2:58 PM CDT DERMATOPATHOLOGY LABORATORY Clinical History A: BCC vs SCC vs AK Path#[id number] B: BCC vs SCC vs AK Path#[id number] 2:58 PM CDT DERMATOPATHOLOGY LABORATORY Gross Description Specimen A: Received is one formalin filled container labeled with the patient's name and designated left chest. The specimen consists of a shave biopsy measuring 6x5x1 mm. Jar 0. Specimen B: Received is one formalin filled container labeled with the patient's name and designated right shoulder. The specimen consists of a shave biopsy measuring 6x5x1 mm. Jar 0. 2:58 PM CDT DERMATOPATHOLOGY LABORATORY Microscopic Description Specimen A. SKIN, left chest: Attached to the undersurface of the epidermis, there are small aggregates of basaloid cells with a high nuclear to cytoplasmic ratio and peripheral palisading. Specimen B. SKIN, right shoulder: Attached to the undersurface of the epidermis, there are small aggregates of basaloid cells with a high nuclear to cytoplasmic ratio and peripheral palisading. 2:58 PM CDT DERMATOPATHOLOGY LABORATORY Disclaimer An external and internal positive and negative controls are appropriate for the histochemical, immunohistochemical and immunofluorescence stain(s) in this case (if any), except where stated explicitly. The performance characteristics of the stain(s) cited in this report were developed and its performance characteristic determined by the Dermatopathology Laboratory at [facility], directed by Dr. Jean Claude Cruz. These tests need not be, and therefore are not, approved by the [place] Food and Drug Administration. The tests are used for clinical purposes. Billing Codes Specimen Charges Stain Charges 16864 06995 1 1 3 2:58 PM CDT DERMATOPATHOLOGY LABORATORY Embedded Images 3 2:58 PM CDT DERMATOPATHOLOGY LABORATORY Pathology/Cytology TISSUE SPECIMEN FROM SKIN / Unknown 01/14/2023 01/15/2023 2:57 PM CDT Miscellaneous samples (specimen) TISSUE SPECIMEN FROM SKIN / Unknown 01/14/2023 01/15/2023 2:57 PM CDT us Colin Paz MD LAB - PATHOLOGY/CYTOLOGY ORDER JASPER Final Result DERMATOPATHOLOGY LABORATORY [facility] - Department of Dermatology [facility] Medicine [address] [place] [address], [address] [phone] documented in this encounter Visit Diagnoses Not on filedocumented in this encounter Care Teams Project Development Engineer Relationship Specialty Start Date End Date Dennys Cordova MD [address] [place] [address] PCP - General 01/15/23 documented as of this encounter
[2025-01-01 10:15] VITALS: BP 137/105; PULSE 83; RESP 18; TEMP 36.6; O2SAT 99; BMI 30.7
--- NOTE | 2025-01-01 10:29 | WPDANESEPPF ---
Anes - Initial Pre Proc Eval Procedure: Operation Date: 01/01/25 11:30 Proposed Procedures p Screening Colonoscopy - Chilo Junior MD Date/Time: 01/01/25 10:29 Surgeon: Chilo Junior MD Pre Op Diagnosis: screening colon Patient Data Age: 49 Gender: F Height: 1.7 m Weight: 88.8 kg Last Vital Signs Temp 97.8 F 01/01/25 10:15 Pulse 83 01/01/25 10:15 Resp 18 01/01/25 10:15 BP 137/105 H 01/01/25 10:15 Pulse Ox 99 01/01/25 10:15 O2 Del Method Room Air 01/01/25 10:15 Allergies Allergy/AdvReac Type Severity Reaction Status Date / Time levofloxacin Allergy Unknown Hives Verified 01/01/25 10:21 Home Medications ?Medication ?Instructions ?Recorded ?Confirmed ?Type multivitamin 1 tablet PO QAM 04/27/20 01/01/25 History Synthroid 100 mcg tablet 100 mcg PO DAILY #90 tabs 03/16/24 01/01/25 Rx (levothyroxine) benzoyl peroxide 5 % topical cream 1 applic topical DAILY 03/16/24 01/01/25 History (Epsolay) cholecalciferol (vitamin D3) 25 25 mcg PO DAILY 03/16/24 01/01/25 History mcg (1,000 unit) tablet ivermectin 1 % topical cream 1 applic topical DAILY 03/16/24 01/01/25 History losartan 25 mg tablet 25 mg PO DAILY #90 tabs 01/01/25 01/01/25 Rx Patient hx anesthesia problems: none Family hx anesthesia problems: none Results Review: All pre-operative results and documents have been reviewed as part of the pre-operative evaluation. [facility] Past Medical History Medical History (Updated 11/27/24 @ 11:41 by ZEESHAN Soliz) Heart palpitations Vitamin D deficiency Surgical History Surgical History H/O thyroidectomy 01/2018 Family History Family History Mother Family history of thyroid disease Family history of pancreatic cancer Family history of coronary artery disease Family history of malignant neoplasm of thyroid Hypertension Father Acute myocardial infarction Hypertension Hyperlipidemia Other Family history of cardiovascular disease Family history of glaucoma Family history of hearing loss Social History Social History Years smoked: 8 Smoking status: Former smoker Tobacco type: cigarettes Smoking end date: 09/09/99 Alcohol intake: current Drinks per week: 2 Substance use: never Substance use type: does not use Lack of Transportation: No Lack of Food: Never True Current Housing: I Have Housing Concerned About Future Housing: No Difficulty Paying Gas/Electric Bills: No Difficulty Paying for Meds: No Currently Unemployed: No Education: Master's Degree or Higher Difficulty w/ Childcare or Family Care: No Living arrangements: with family Spiritual care concerns: No Anes - Eval Final PreProcedure Day of Procedure 01/01/25 10:29 Patient weight: obese Heart: regular rate and rhythm Lungs: clear to auscultation Airway: Mallampati scale class II Neurological: alert and oriented Last oral intake: >/= 8 hours ASA classification: II Emergent: no Anesthetic plan: proceed Anesthesia type and monitoring: general GIVS and standard monitoring Results Review: All pre-operative results and documents have been reviewed as part of the pre-operative evaluation. Informed Consent: The patient's anesthetic plan and its attendant risks and benefits were discussed with the patient/family/POA. Questions were solicited and answers provided to the satisfaction of the patient/family/POA.
[2025-01-01 10:30] LABS: BEDSIDEPREGUCG Negative (Negative)
[2025-01-01] MEDS: LACTATED RINGERS 1,000 ML 150 ML IV CONT (10:38)
--- NOTE | 2025-01-01 10:46 | SUR.PREOP ---
patients blood pressure was 137/105, pt stated just got on blood pressure medication and hasn't taken it today . was notified of patients blood pressure.
--- NOTE | 2025-01-01 10:47 | P.HP_ITS ---
H&P: HPI History of Present Illness Date/Time: 01/01/25 10:47 Chief Complaint: Screening colonoscopy Narrative: This is the patient's first colonoscopy. There are no GI symptoms and there is no family history of colorectal cancer. Review of Systems Review of Systems: All systems reviewed & are unremarkable except as noted in HPI and below PMFSH Past Medical History Medical History (Updated 11/27/24 @ 11:41 by ZEESHAN Soliz) Heart palpitations Vitamin D deficiency Surgical History Surgical History (Reviewed 11/27/24 @ 11:03 by Alis Somers, [facility]) H/O thyroidectomy 01/2018 Family History Family History Mother Family history of thyroid disease Family history of pancreatic cancer Family history of coronary artery disease Family history of malignant neoplasm of thyroid Hypertension Father Acute myocardial infarction Hypertension Hyperlipidemia Other Family history of cardiovascular disease Family history of glaucoma Family history of hearing loss Social History Social History (Reviewed 11/27/24 @ 11:03 by Alis Somers [facility]) Years smoked: 8 Smoking status: Former smoker Tobacco type: cigarettes Smoking end date: 09/09/99 Alcohol intake: current Drinks per week: 2 Substance use: never Substance use type: does not use Lack of Transportation: No Lack of Food: Never True Current Housing: I Have Housing Concerned About Future Housing: No Difficulty Paying Gas/Electric Bills: No Difficulty Paying for Meds: No Currently Unemployed: No Education: Master's Degree or Higher Difficulty w/ Childcare or Family Care: No Living arrangements: with family Spiritual care concerns: No Meds Home Medications and Allergies Home Medications ?Medication ?Instructions ?Recorded ?Confirmed ?Type multivitamin 1 tablet PO QAM 04/27/20 01/01/25 History Synthroid 100 mcg tablet 100 mcg PO DAILY #90 tabs 03/16/24 01/01/25 Rx (levothyroxine) benzoyl peroxide 5 % topical cream 1 applic topical DAILY 03/16/24 01/01/25 History (Epsolay) cholecalciferol (vitamin D3) 25 25 mcg PO DAILY 03/16/24 01/01/25 History mcg (1,000 unit) tablet ivermectin 1 % topical cream 1 applic topical DAILY 03/16/24 01/01/25 History losartan 25 mg tablet 25 mg PO DAILY #90 tabs 01/01/25 01/01/25 Rx Allergies Allergy/AdvReac Type Severity Reaction Status Date / Time levofloxacin Allergy Unknown Hives Verified 01/01/25 10:21 Vital Signs Vital Signs - 24 hr 01/01/25 10:15 Temperature 97.8 F Pulse Rate 83 Respiratory Rate 18 Blood Pressure 137/105 H Pulse Oximetry 99 Oxygen Delivery Room Air Exam Const: General: cooperative and healthy appearing Resp: Effort & Inspection: normal respiratory effort and able to speak in complete sentences Auscultation: clear to auscultation bilaterally Cardio: Rate: regular rate Rhythm: regular rhythm GI: Inspection: normal to inspection GI Palp: No No hepatosplenomegaly present Auscultation: normal bowel sounds Rectal Exam: deferred Skin: General skin exam: normal color Psych: Appearance: grossly normal Mental Status: mental status grossly normal Assessment and Plan Assessment and plan (1) Screening for colon cancer: Code(s): Z12.11 - Encounter for screening for malignant neoplasm of colon Status: Acute Assessment and Plan: The patient is deemed a good candidate for the procedure. Consent signed. Will proceed.
[2025-01-01 11:11] VITALS: BP 105/70; PULSE 68; RESP 16; O2SAT 98
[2025-01-01 11:21] VITALS: BP 92/59; PULSE 66; RESP 24; O2SAT 100
[2025-01-01 11:31] VITALS: BP 132/92; PULSE 66; RESP 13; O2SAT 100
== END 2025-01-01 11:49 | disposition home or self-care (01) ==
PROVIDERS: Anesthesiology; PCP Clinical Nurse Specialist; Referring Provider Nurse Practitioner; Visit Provider Internal Medicine Gastroenterology
PROC: 0DJD8ZZ Inspection of Lower Intestinal Tract, Via Natural or Artificial Opening Endoscopic (ICD-10-PCS; CPT 45378; principal; 2025-01-01 11:30)
DX: Z12.11 Encounter for screening for malignant neoplasm of colon (principal); K57.30 Diverticulosis of large intestine without perforation or abscess without bleeding; E55.9 Vitamin D deficiency, unspecified; R00.2 Palpitations; E66.9 Obesity, unspecified; Z68.30 Body mass index [BMI] 30.0-30.9, adult; Z98.890 Other specified postprocedural states; Z87.891 Personal history of nicotine dependence; Z80.0 Family history of malignant neoplasm of digestive organs; Z80.8 Family history of malignant neoplasm of other organs or systems; Z82.49 Family history of ischemic heart disease and other diseases of the circulatory system
CPT/HCPCS: 45378; J2003; J2704; J7120

== ENCOUNTER 2025-03-26 11:16 | Outpatient (CLI) | payer BC, SELFPAY ==
--- NOTE | ~2025-03-26 | MM_ITS ---
EXAMINATION: MM screening [facility] BI w elian HISTORY: Screening TECHNIQUE: Craniocaudal and mediolateral oblique 3-D tomosynthesis images were obtained and synthetic 2-D images were generated. CAD analysis was submitted and interpreted. COMPARISON: Comparison to multiple prior studies sequentially, with oldest reviewed study dated 08/09. BREAST PARENCHYMAL COMPOSITION: There are scattered areas of fibroglandular density. FINDINGS: There is no evidence of suspicious mass, calcification, or architectural distortion to sugg est malignancy in either breast. There has been no suspicious interval change. IMPRESSION: 1. No mammographic evidence of malignancy. 2. Recommend routine screening mammography in one year. BI-RADS Category 1: Negative Reviewed, dictated and finalized at location B.
== END 2025-03-26 11:17 | disposition home or self-care (01) ==
LOC: MICIMG 11:16
PROVIDERS: PCP Clinical Nurse Specialist; Visit Provider Nurse Practitioner
DX: Z12.31 Encounter for screening mammogram for malignant neoplasm of breast (principal)
CPT/HCPCS: 77063; 77067